=== PATIENT | male | born 1950 | race Caucasian/White ===

== ENCOUNTER 2019-09-12 06:38 | Observation (INO) ==
[2019-09-12] MEDS ORDERED: Isovue-370 500 ML BOTTLE IVP ONE (07:11)
[2019-09-12] MEDS ORDERED: 0.9 % Sodium Chloride 1,000 ML IVC ONE ×2 (07:12→08:57)
[2019-09-12] MEDS ORDERED: *HR* Promethazine 25 MG/ML VIAL IVP STA (07:12)
[2019-09-12] MEDS ORDERED: Ketorolac 15 MG/ML VIAL IVP ONE ×2 (07:13→08:23)
[2019-09-12 07:48] LABS: Bilirubin,Urine Negative (Negative); Blood,Urine Negative (Negative); Clarity,Urine Cloudy (Clear); Color,Urine Yellow (Yellow); Glucose,Urine (UA) Normal (Normal); Ketones,Urine Negative (Negative); Leukocyte Esterase,Urine Negative (Negative); Nitrite,Urine Negative (Negative); Protein,Urine 30 mg/dL (Neg-Trace); Specific Gravity,Urine 1.021 (1.010-1.025); Urobilinogen,Urine Normal (Normal)
[2019-09-12 07:51] LABS: Bacteria,Urine None Seen per hpf (None-Few); Hyaline Casts,Urine None Seen per lpf (None-Few); RBC,Urine 0-3 per hpf (0-3); Squamous Epithelial Cell,Urine Few per lpf (None-Few); WBC,Urine 0-3 per hpf (0-3)
[2019-09-12 08:08] LABS: Basophils % 0.1 %; Eosinophils % 0.1 %; Hematocrit 40.6 % (37.5-50.1); Hemoglobin 14.1 g/dL (12.9-16.9); Immature Granulocytes % 0.2 % (0-4); Lymphocytes # 1.2 K/mcL (0.6-4.6); Mean Corpuscular HGB Conc 34.7 g/dL (31.6-35.5); Mean Corpuscular Hemoglobin 28.4 pg (28.0-33.3); Mean Corpuscular Volume 81.9 fL (83.0-100.0); Monocytes # 0.6 K/mcL (0.0-1.3); Monocytes % 5.7 %; Neutrophils # 8.9 K/mcL (1.6-8.9); Platelet Count 337 K/mcL (140-400); Red Blood Count 4.96 M/mcL (4.19-5.50); Red Cell Distribution Width 14.2 % (11.5-14.5); Segmented Neutrophils % 82.9 %; White Blood Count 10.7 K/mcL (4.3-11.1)
[2019-09-12 08:25] LABS: Alanine Aminotransferase 81 Units/L (7-52); Albumin 4.3 g/dL (3.5-5.7); Albumin/Globulin Ratio 1.2 (1.1-2.2); Alkaline Phosphatase 60 Units/L (34-104); Aspartate Amino Transferase 23 Units/L (13-39); BUN/Creatinine Ratio 12 (6-26); Bilirubin,Direct 0.1 mg/dL (0.0-0.2); Bilirubin,Indirect 0.4 mg/dL (0.0-1.0); Bilirubin,Total 0.5 mg/dL (0.3-1.0); Blood Urea Nitrogen 14 mg/dL (8-23); Carbon Dioxide 26 mEq/L (23-29); Chloride 104 mEq/L (98-107); Globulin 3.5 g/dL (2.4-3.5); Glucose 115 mg/dL (70-105); Lipase 11 Units/L (11-82); Osmolality,Calculated 291 (280-300); Sodium 140 mEq/L (136-145); Total Protein 7.8 g/dL (6.4-8.9); eGFR For African Americans > 60 (> 60); eGFR For Non-African Americans > 60 (> 60)
[2019-09-12] MEDS ORDERED: MetroNIDAZOLE 500 MG/100 ML 500 MG/100 ML BAG IVPB ONE (09:39)
[2019-09-12] MEDS ORDERED: Naloxone 0.4 MG/ML INJ IVP PRN (11:43)
[2019-09-12] MEDS ORDERED: *HR* Promethazine 25 MG/ML VIAL IVP PRN (13:36)
[2019-09-12] MEDS: Ketorolac 30 MG/ML VIAL IVP PRN (14:31)
[2019-09-12] MEDS: *HR* Buprenorphine HCl 8 MG TAB.SUBL SL SCH (14:55)
[2019-09-12] MEDS: MetroNIDAZOLE 500 MG/100 ML 500 MG/100 ML BAG IVPB SCH ×2 (17:09→23:13)
[2019-09-12] MEDS: *HR* Heparin 5,000 UNIT/ML VIAL SQ SCH (17:14)
[2019-09-12] MEDS: Ringers Solution, Lactated 1,000 ML IVC SCH (23:14)
[2019-09-13 01:36] LABS: Basophils % 0.3 %; Eosinophils # 0.1 K/mcL (0.0-0.6); Eosinophils % 1.4 %; Hematocrit 33.2 % (37.5-50.1); Immature Granulocytes % 0.3 % (0-4); Lymphocytes # 1.7 K/mcL (0.6-4.6); Lymphocytes % 23.8 %; Mean Corpuscular HGB Conc 33.4 g/dL (31.6-35.5); Mean Corpuscular Hemoglobin 28.9 pg (28.0-33.3); Mean Corpuscular Volume 86.5 fL (83.0-100.0); Mean Platelet Volume 8.9 fL (9.4-12.4); Monocytes # 0.7 K/mcL (0.0-1.3); Monocytes % 9.6 %; Neutrophils # 4.7 K/mcL (1.6-8.9); Platelet Count 253 K/mcL (140-400); Red Blood Count 3.84 M/mcL (4.19-5.50); Red Cell Distribution Width 14.6 % (11.5-14.5); Segmented Neutrophils % 64.6 %; White Blood Count 7.2 K/mcL (4.3-11.1)
[2019-09-13 01:37] LABS: Hemoglobin 11.1 g/dL (12.9-16.9)
[2019-09-13 02:22] LABS: BUN/Creatinine Ratio 17 (6-26); Blood Urea Nitrogen 17 mg/dL (8-23); Calcium 8.6 mg/dL (8.6-10.3); Carbon Dioxide 22 mEq/L (23-29); Chloride 110 mEq/L (98-107); Glucose 83 mg/dL (70-105); Osmolality,Calculated 293 (280-300); Potassium 3.6 mEq/L (3.5-5.1); Sodium 141 mEq/L (136-145); eGFR For African Americans > 60 (> 60); eGFR For Non-African Americans > 60 (> 60)
[2019-09-13] MEDS: *HR* Heparin 5,000 UNIT/ML VIAL SQ SCH ×2 (05:37→18:42)
[2019-09-13] MEDS: *HR* Buprenorphine HCl 8 MG TAB.SUBL SL SCH (09:14)
[2019-09-13] MEDS: Pantoprazole 40 MG VIAL IVP SCH (09:16)
[2019-09-13] MEDS: MetroNIDAZOLE 500 MG/100 ML 500 MG/100 ML BAG IVPB SCH ×2 (09:17→17:34)
[2019-09-13] MEDS: Ringers Solution, Lactated 1,000 ML IVC SCH (11:48)
[2019-09-13] MEDS: Psyllium 1 PACKET POWD.PACK PO SCH ×2 (17:32→20:43)
[2019-09-13] MEDS: Ketorolac 30 MG/ML VIAL IVP PRN (18:46)
[2019-09-13] MEDS ORDERED: *HR* LORazepam 0.5 MG TABLET PO ONE (22:19)
[2019-09-13] MEDS: Nicotine 14 MG PATCH.TD24 TD SCH (22:31)
[2019-09-14] MEDS: MetroNIDAZOLE 500 MG/100 ML 500 MG/100 ML BAG IVPB SCH ×2 (00:14→08:13)
[2019-09-14 04:39] LABS: Hematocrit 37.1 % (37.5-50.1); Hemoglobin 12.3 g/dL (12.9-16.9); Mean Corpuscular HGB Conc 33.2 g/dL (31.6-35.5); Mean Corpuscular Hemoglobin 28.5 pg (28.0-33.3); Mean Corpuscular Volume 85.9 fL (83.0-100.0); Platelet Count 275 K/mcL (140-400); Red Blood Count 4.32 M/mcL (4.19-5.50); White Blood Count 6.1 K/mcL (4.3-11.1)
[2019-09-14] MEDS: *HR* Heparin 5,000 UNIT/ML VIAL SQ SCH (05:51)
[2019-09-14] MEDS: Ringers Solution, Lactated 1,000 ML IVC SCH ×2 (05:52→08:05)
[2019-09-14] MEDS: *HR* Buprenorphine HCl 8 MG TAB.SUBL SL SCH (08:11)
[2019-09-14] MEDS: Nicotine 14 MG PATCH.TD24 TD SCH (08:12)
[2019-09-14] MEDS: Psyllium 1 PACKET POWD.PACK PO SCH (08:13)
[2019-09-14] MEDS: Pantoprazole 40 MG VIAL IVP SCH (08:13)
[2019-09-14] MEDS ORDERED: hydrOXYzine pamoate 25 MG CAPSULE PO SCH (09:00)
[2019-09-14] MEDS ORDERED: BuPROPion XL (24 HR) 150 MG TABLET PO SCH (09:00)
[2019-09-14 12:06] VITALS: BP 109/61
== END 2019-09-14 13:48 | disposition home or self-care (01) ==
LOC: 3ANU 06:38 → EMEROOARM 06:38 → SUATTDRO 11:17 → 3ANU 12:53
PROVIDERS: ADMIT Internal Medicine; ATTEND Internal Medicine